=== PATIENT | female | born 1975 | race Caucasian/White ===

== ENCOUNTER 2022-07-17 11:44 | Emergency (ER) | payer OTHER, SELFPAY ==
[2022-07-17] VITALS (7 sets, daily range): BP systolic 97–127; BP diastolic 49–64; PULSE 61–86; RESP 16–21; TEMP 36.7; O2SAT 98–100
[2022-07-17] MEDS: SODIUM CHLORIDE 0.9% IV 1,000 ML 999 ML IV CONT ×2 (12:20→14:25)
[2022-07-17] MEDS: MECLIZINE HCL 25 MG TABLET PO (12:28)
[2022-07-17 12:35] LABS: Basophils Absolute Auto 0.1 K/mm3 (0.0-0.1); Basophils Percent Auto 0.6 % (0.2-1.2); Eosinophils Absolute Auto 0.2 K/mm3 (0-0.3); Eosinophils Percent Auto 1.6 % (0-4.4); Hematocrit 41.3 % (37.0-47.0); Hemoglobin 13.6 g/dL (12.0-15.0); Immature Granulocyte Absolute 0.04 K/mm3 (0.00-0.031); Immature Granulocyte Percent A 0.4 % (0-0.5); Lymphocytes Absolute Auto 2.32 K/mm3 (0.9-3.2); Lymphocytes Percent Auto 23.1 % (18.3-44.2); Mean Corpuscular HGB Conc 32.9 g/dl (32-36); Mean Corpuscular Hemoglobin 28.6 pg (26-34); Mean Corpuscular Volume 86.9 fl (80-100); Mean Platelet Volume 11.8 fl (7.4-10.4); Monocytes Absolute Auto 0.5 K/mm3 (0.1-0.6); Monocytes Percent Auto 4.6 % (2.6-8.5); Neutrophils Percent Auto 69.7 % (45.5-73.1); Platelet Count Result 209 k/mm3 (150-375); Red Blood Count 4.75 M/mm3 (4.2-5.4); Red Cell Distribution Width 12.6 % (11.5-14.5)
[2022-07-17 12:46] LABS: Alanine Aminotransferase 15 U/L (6-35); Albumin Level 4.5 g/dL (3.5-5.1); Alkaline Phosphatase 46 U/L (38-126); Anion Gap 8 mmol/L (8-16); Aspartate Amino Transferase 18 U/L (14-36); Bilirubin,Total 0.3 mg/dL (0.2-1.3); Blood Urea Nitrogen 11 mg/dL (7-17); Calcium 9.2 mg/dL (8.4-10.2); Carbon Dioxide 25 mmol/L (22-30); Chloride 106 mmol/L (98-107); Estimated CRCL calculation 63 ml/min; Estimated Glomerular Filt Rate > 60; Glucose 100 mg/dL (65-110); Potassium 4.2 mmol/L (3.4-5.0); Sodium 139 mmol/L (137-145)
--- NOTE | 2022-07-17 13:19 | ED.GENADULT ---
HPI - General Adult General Chief complaint: Dizziness Stated complaint: dizzy Time Seen by Provider: 07/17/22 11:59 History of Present Illness HPI narrative: Patient is a 46-year-old female who presents ER with dizziness. She woke up this morning and when she sat up she started having spinning dizziness and got nauseated. Symptoms occur if she lays down flat as well. No focal numbness or weakness in arm or leg. No chest pain or chest pressure. Has not had similar symptoms. No recent runny nose or sore throat or cough. No ringing in the ears or muffled hearing. When patient is dizzy it lasts for about 5 minutes before it goes away. Related Data Allergies Allergy/AdvReac Type Severity Reaction Status Date / Time No Known Allergies Allergy Verified 07/17/22 11:52 Review of Systems Review of Systems: All systems reviewed & are unremarkable except as noted in HPI and below Constitutional: Constitutional: Denies chills, Denies fatigue and Denies fever(s) ENT: Reports dizziness, Denies nasal congestion and Denies sore throat Cardiovascular: Cardiovascular: Denies chest pain, Denies rapid heart rate and Denies radiating jaw, neck or arm pain Gastrointestinal: Gastrointestinal: Denies abdominal pain, Reports nausea and Denies vomiting Neurologic: Reports dizziness, Denies syncope, Denies headache(s) and Denies focal weakness PMFSH Past Medical History Medical History (Updated 07/17/22 @ 15:26 by Brian Hoff MD) Anxiety Surgical History Surgical History (Updated 07/17/22 @ 13:21 by Brian Hoff MD) No pertinent past surgical history Social History Social History (Updated 07/17/22 @ 13:21 by Brian Hoff MD) Smoking status: Never smoker Exam Narrative: GENERAL: Well-appearing, well-nourished, and in no acute distress. HEAD: Normocephalic, atraumatic. EYES: PERRL and EOMI. ENT: Mucous membranes moist. TMs normal bilaterally. NECK: Supple. CHEST: Clear to auscultation. No respiratory distress. HEART: Regular rate and rhythm. Normal peripheral pulses. ABDOMEN: Soft, nontender, nondistended. EXTREMITIES: Normal range of motion. No edema. NEURO: Alert and oriented x3. PSYCH: Normal mood and affect. Course Course Emergency Course: Patient feels improved with meclizine though it is making her tired. She has been hydrated with 2 L of IV fluid. Patient will get some slight dizziness with laying back but is more tolerable. Will prescribe meclizine for home and recommend follow-up with ENT as needed. Vital Signs Vital signs: Vital Signs Temperature 98.1 F 07/17/22 11:45 Pulse Rate 86 07/17/22 11:45 Respiratory Rate 16 07/17/22 11:45 Blood Pressure 126/53 L 07/17/22 11:45 Pulse Oximetry 98 07/17/22 11:45 Oxygen Delivery Room Air 07/17/22 11:45 Temperature 98.1 F 07/17/22 11:45 Pulse Rate 78 07/17/22 14:52 Respiratory Rate 21 H 07/17/22 14:52 Blood Pressure 127/64 07/17/22 14:52 Pulse Oximetry 98 07/17/22 14:52 Oxygen Delivery Room Air 07/17/22 11:45 Medical Decision Making Vital Signs Vital Signs: Vital Signs Temperature 98.1 F 07/17/22 11:45 Pulse Rate 86 07/17/22 11:45 Respiratory Rate 16 07/17/22 11:45 Blood Pressure 126/53 L 07/17/22 11:45 Pulse Oximetry 98 07/17/22 11:45 Oxygen Delivery Room Air 07/17/22 11:45 Temperature 98.1 F 07/17/22 11:45 Pulse Rate 78 07/17/22 14:52 Respiratory Rate 21 H 07/17/22 14:52 Blood Pressure 127/64 07/17/22 14:52 Pulse Oximetry 98 07/17/22 14:52 Oxygen Delivery Room Air 07/17/22 11:45 Lab Data Result diagrams: 07/17/22 12:22 07/17/22 12:23 Labs: Lab Results 07/17/22 07/17/22 Range/Units 12:22 12:23 WBC 10.0 (4.5-10.0) K/mm3 RBC 4.75 (4.2-5.4) M/mm3 Hgb 13.6 (12.0-15.0) g/dL Hct 41.3 (37.0-47.0) % MCV 86.9 (80-100) fl MCH 28.6 (26-34) pg MCHC 32.9 (32-36) g/dl RDW 12.6 (1
== END 2022-07-17 15:35 | disposition home or self-care (01) ==
PROVIDERS: Emergency Medicine; Emergency Provider Emergency Medicine
DX: R42 Dizziness and giddiness (principal)
CPT/HCPCS: 36415; 80053; 85025; 96360; 96361; 99283; A9270; J7030

== ENCOUNTER 2022-09-17 07:23 | Outpatient (RCR) | payer OTHER, SELFPAY | END 2022-12-03 08:41 | disposition home or self-care (01) | LOC: ANHPT 07:23 | PROVIDERS: Visit Provider Otolaryngology | DX: H81.10 Benign paroxysmal vertigo, unspecified ear (principal) | CPT/HCPCS: 99199 ==